=== PATIENT | female | born 1935 | race Caucasian/White ===

== ENCOUNTER 2018-09-10 05:39 | Inpatient (IN) ==
[2018-09-10] MEDS ORDERED: VANCOMYCIN INJ 1,000 MG in SODIUM CHLORIDE 0.9% 250 ML IV ONE (08:00)
[2018-09-10] MEDS ORDERED: ceFAZolin 1,000 MG in SYRINGE 1 EACH IV ONE (08:00)
[2018-09-10] MEDS ORDERED: ceFAZolin 1,000 MG VIAL ONE (08:04)
[2018-09-10] MEDS ORDERED: VANCOMYCIN 1,000 MG VIAL ONE (08:04)
[2018-09-10] MEDS ORDERED: ROPIVACAINE 0.5% 30 ML VIAL ONE (08:53)
[2018-09-10] MEDS ORDERED: BUPIVACAINE SPINAL 0.75% 2 ML AMP SPINAL ONE (08:53)
[2018-09-10] MEDS ORDERED: LACTATED RINGERS 1,000 ML IV SCH (09:30)
[2018-09-10] MEDS ORDERED: TEMAZEPAM 15 MG CAPSULE PO PRN (10:04)
[2018-09-10] MEDS ORDERED: oxyCODONE IR 5 MG TABLET PO PRN ×2 (10:05)
[2018-09-10] MEDS ORDERED: MAGNESIUM HYDROXIDE SUSP 30 ML UDCUP PO PRN (10:05)
[2018-09-10] MEDS ORDERED: MORPHINE 4 MG/1 ML VIAL IV PRN ×2 (10:05)
[2018-09-10] MEDS ORDERED: diphenhydrAMINE CAP 25 MG CAPSULE PO PRN (10:05)
[2018-09-10] MEDS ORDERED: ONDANSETRON 4 MG/2 ML VIAL IV PRN (10:05)
[2018-09-10] MEDS ORDERED: BACITRACIN OINT 0.9 GM PACK TOP ONE (10:36)
[2018-09-10] MEDS ORDERED: TRANEXAMIC ACID 1,000 MG/10 ML VIAL ONE (10:36)
[2018-09-10] MEDS ORDERED: PROPOFOL 200 MG/20 ML VIAL IV ONE (11:21)
[2018-09-10] MEDS ORDERED: fentaNYL 100 MCG/2 ML VIAL ONE (11:21)
[2018-09-10] MEDS ORDERED: MIDAZOLAM 2 MG/2 ML VIAL ONE (11:22)
[2018-09-10] MEDS ORDERED: SODIUM CHLORIDE 0.9% 100 ML IV ONE (11:22)
[2018-09-10] MEDS: KETOROLAC 15 MG/1 ML VIAL IV SCH ×3 (11:42→23:14)
[2018-09-10 12:58] LABS: Basophils # 0.1 10*3/uL (0.0-0.2); Basophils % 0.8 % (0.0-0.8); Eosinophils # 0.3 10*3/uL (0.0-0.87); Eosinophils % 2.8 % (0.00-10.9); Hematocrit 34.4 VOL% (35.7-47.0); Hemoglobin 11.1 GM/DL (12.0-16.0); Immature Granulocytes % 0.6 %; Immature Granulocytes Absolute 0.07 #; Lymphocytes # 1.7 10*3/uL (1.4-4.0); Lymphocytes % 15.2 % (21.3-54.2); Mean Corpuscular HGB Conc 32.3 GM/DL (32-36); Mean Corpuscular Hemoglobin 29 PG (27-34); Mean Platelet Volume 10.5 FL (9.6-12.0); Monocytes # 0.7 10*3/uL (0.11-0.8); Monocytes % 6.1 % (1.7-12.7); Neutrophils # 8.4 10*3/uL (1.4-7.4); Neutrophils % 74.5 % (38.7-73.9); Platelet Count 225 T/CUMM (130-400); Red Blood Count 3.78 MC/CUMM (3.8-5.5); Red Cell Distribution Width 12.3 % (9.3-17.3); White Blood Count 11.3 T/CUMM (4-12)
[2018-09-10 13:23] LABS: Calcium 8.2 MG/DL (8.5-10.1); Osmolality,Calculated 276.7 MOS/KG (273-304); Potassium 4.2 MMOL/L (3.5-5.1)
[2018-09-10] MEDS: ACETAMINOPHEN 500 MG TABLET PO SCH ×2 (15:33→20:52)
[2018-09-10] MEDS: ceFAZolin 2,000 MG in PREMIX 1 EACH IV SCH ×2 (15:41→21:16)
[2018-09-10] MEDS: DOCUSATE SODIUM 100 MG CAPSULE PO SCH (20:52)
[2018-09-11] MEDS ORDERED: TEMAZEPAM 15 MG CAPSULE PO PRN (02:00)
[2018-09-11] MEDS: ACETAMINOPHEN 500 MG TABLET PO SCH ×2 (02:43→10:28)
[2018-09-11 04:40] LABS: Basophils # 0.1 10*3/uL (0.0-0.2); Basophils % 0.7 % (0.0-0.8); Eosinophils # 0.2 10*3/uL (0.0-0.87); Eosinophils % 2.9 % (0.00-10.9); Hematocrit 30.3 VOL% (35.7-47.0); Hemoglobin 9.6 GM/DL (12.0-16.0); Immature Granulocytes % 0.4 %; Immature Granulocytes Absolute 0.03 #; Lymphocytes # 1.3 10*3/uL (1.4-4.0); Lymphocytes % 16.1 % (21.3-54.2); Mean Corpuscular HGB Conc 31.7 GM/DL (32-36); Mean Corpuscular Hemoglobin 29 PG (27-34); Mean Corpuscular Volume 91.3 FL (87-102); Monocytes # 0.7 10*3/uL (0.11-0.8); Monocytes % 8.6 % (1.7-12.7); Neutrophils # 5.7 10*3/uL (1.4-7.4); Neutrophils % 71.3 % (38.7-73.9); Platelet Count 193 T/CUMM (130-400); Red Blood Count 3.32 MC/CUMM (3.8-5.5); Red Cell Distribution Width 12.3 % (9.3-17.3)
[2018-09-11 05:12] LABS: Calcium 7.9 MG/DL (8.5-10.1); Potassium 4.2 MMOL/L (3.5-5.1)
[2018-09-11] MEDS: KETOROLAC 15 MG/1 ML VIAL IV SCH (06:00)
[2018-09-11] MEDS: FONDAPARINUX 2.5 MG/0.5 ML SYRINGE SUBCUT SCH (06:02)
[2018-09-11] MEDS: LEVOTHYROXINE 50 MCG TABLET PO SCH (06:05)
[2018-09-11] MEDS ORDERED: ACETAMINOPHEN 500 MG TABLET ONE (10:25)
[2018-09-11] MEDS: PANTOPRAZOLE 40 MG TABLET PO SCH (10:29)
[2018-09-11] MEDS: CITALOPRAM 20 MG TABLET PO SCH (10:29)
[2018-09-11] MEDS: DOCUSATE SODIUM 100 MG CAPSULE PO SCH ×2 (10:29→21:31)
[2018-09-11] MEDS: amLODIPine 5 MG TABLET PO SCH (10:30)
[2018-09-11] MEDS: PRAMIPEXOLE 0.5 MG PO SCH (16:30)
[2018-09-12 06:06] LABS: Basophils # 0.1 10*3/uL (0.0-0.2); Basophils % 0.8 % (0.0-0.8); Eosinophils # 0.4 10*3/uL (0.0-0.87); Hematocrit 28.9 VOL% (35.7-47.0); Hemoglobin 9.2 GM/DL (12.0-16.0); Immature Granulocytes % 0.5 %; Immature Granulocytes Absolute 0.04 #; Lymphocytes % 11.5 % (21.3-54.2); Mean Corpuscular HGB Conc 31.8 GM/DL (32-36); Mean Corpuscular Hemoglobin 29 PG (27-34); Mean Platelet Volume 10.9 FL (9.6-12.0); Monocytes # 0.9 10*3/uL (0.11-0.8); Neutrophils # 6.4 10*3/uL (1.4-7.4); Neutrophils % 73.2 % (38.7-73.9); Platelet Count 186 T/CUMM (130-400); Red Blood Count 3.14 MC/CUMM (3.8-5.5); Red Cell Distribution Width 12.5 % (9.3-17.3); White Blood Count 8.8 T/CUMM (4-12)
[2018-09-12] MEDS: LEVOTHYROXINE 50 MCG TABLET PO SCH (06:10)
[2018-09-12] MEDS: FONDAPARINUX 2.5 MG/0.5 ML SYRINGE SUBCUT SCH (06:10)
[2018-09-12] MEDS: CITALOPRAM 20 MG TABLET PO SCH (08:57)
[2018-09-12] MEDS: PANTOPRAZOLE 40 MG TABLET PO SCH (08:58)
[2018-09-12] MEDS: amLODIPine 5 MG TABLET PO SCH (08:58)
[2018-09-12] MEDS: PRAMIPEXOLE 0.5 MG PO SCH (10:29)
[2018-09-12] MEDS: DOCUSATE SODIUM 100 MG CAPSULE PO SCH (10:29)
[2018-09-12 12:05] VITALS: BP 131/66
== END 2018-09-12 12:35 | disposition home health service (06) | DRG 470 ==
LOC: N.OR 05:39 → N.SDSINP 05:40 → N.3E 11:54
PROVIDERS: ADMIT Orthopaedic Surgery; ATTEND Orthopaedic Surgery

== ENCOUNTER 2021-02-22 09:26 | Observation (INO) ==
[2021-02-22 11:13] LABS: Bacteria,Urine Many /HPF (Few); Bilirubin,Urine Negative (Negative); Blood, Urine Moderate mg/dL (Negative); Glucose,Urine (UA) Negative (Negative); Ketones,Urine 80 mg/dL (Negative); Mucus,Urine Occasional /LPF (Occasional); Nitrite,Urine Negative (Negative); Protein,Urine Negative; RBC,Urine 1 /HPF (0-4); Squamous Epithelial Cell,Urine Occasional /HPF (0-10); Urine Appearance CLEAR (Clear); Urine Color Yellow (Yellow); Urine Specific Gravity 1.016 (1.001-1.035); Urine Urobilinogen < 2.0 EU/DL (0.2-1.0)
[2021-02-22 11:29] LABS: Basophils # 0.1 10*3/uL (0.0-0.2); Basophils % 0.9 % (0.0-0.8); Eosinophils # 0.1 10*3/uL (0.0-0.87); Eosinophils % 0.9 % (0.00-10.9); Hematocrit 29.4 VOL% (35.7-47.0); Hemoglobin 8.8 GM/DL (12.0-16.0); Immature Granulocytes % 0.5 %; Immature Granulocytes Absolute 0.04 #; Lymphocytes # 1.3 10*3/uL (1.4-4.0); Lymphocytes % 17.3 % (21.3-54.2); Mean Corpuscular HGB Conc 29.9 GM/DL (32-36); Mean Corpuscular Volume 85.2 FL (87-102); Mean Platelet Volume 9.4 FL (9.6-12.0); Monocytes % 6.4 % (1.7-12.7); Platelet Count 366 T/CUMM (130-400); Red Blood Count 3.45 MC/CUMM (3.8-5.5); White Blood Count 7.6 T/CUMM (4-12)
[2021-02-22 12:28] LABS: Bilirubin,Total 0.5 MG/DL (0.2-1.0); Calcium 8.7 MG/DL (8.5-10.1); Osmolality,Calculated 270.8 MOS/KG (273-304); Potassium 3.9 MMOL/L (3.5-5.1); Total Protein 7.2 G/DL (6.4-8.2)
[2021-02-22] MEDS ORDERED: GLUCAGON 1 MG VIAL IM PRN (13:16)
[2021-02-22] MEDS ORDERED: DEXTROSE 50% 25 GM/50 ML VIAL IV PRN (13:16)
[2021-02-22 14:52] LABS: % Iron Saturation 5.5 % (18-50)
[2021-02-22 15:17] LABS: Folate 22.86 NG/ML (5.38-24.0); Vitamin B12 638 PG/ML (211-911)
[2021-02-22 18:54] LABS: Basophils # 0.1 10*3/uL (0.0-0.2); Basophils % 0.8 % (0.0-0.8); Eosinophils % 0.5 % (0.00-10.9); Hematocrit 30.3 VOL% (35.7-47.0); Hemoglobin 8.9 GM/DL (12.0-16.0); Immature Granulocytes % 0.8 %; Immature Granulocytes Absolute 0.06 #; Lymphocytes # 1.2 10*3/uL (1.4-4.0); Mean Corpuscular HGB Conc 29.4 GM/DL (32-36); Mean Corpuscular Volume 87.3 FL (87-102); Mean Platelet Volume 11.1 FL (9.6-12.0); Monocytes % 5.6 % (1.7-12.7); Neutrophils % 76.3 % (38.7-73.9); Platelet Count 395 T/CUMM (130-400); Red Blood Count 3.47 MC/CUMM (3.8-5.5); Red Cell Distribution Width 16.4 % (9.3-17.3); White Blood Count 7.3 T/CUMM (4-12)
[2021-02-22] MEDS ORDERED: PRAMIPEXOLE 0.25 MG TABLET PO PRN ×2 (19:59→20:02)
[2021-02-22 20:15] LABS: Sedimentation Rate-Westergren 65 MM/HR (0-30)
[2021-02-22] MEDS: SODIUM CHLORIDE 0.9% 1,000 ML IV SCH (21:29)
[2021-02-22] MEDS: TEMAZEPAM 15 MG CAPSULE PO SCH (21:29)
[2021-02-23] MEDS: SODIUM CHLORIDE 0.9% 1,000 ML IV SCH (04:40)
[2021-02-23 05:42] LABS: Hematocrit 25.1 VOL% (35.7-47.0); Hemoglobin 7.7 GM/DL (12.0-16.0)
[2021-02-23 05:56] LABS: Calcium 8.2 MG/DL (8.5-10.1); Osmolality,Calculated 269.8 MOS/KG (273-304); Potassium 3.5 MMOL/L (3.5-5.1)
[2021-02-23] MEDS ORDERED: LOPERAMIDE 2 MG CAPSULE PO PRN (08:54)
[2021-02-23] MEDS: ASPIRIN 325 MG TABLET PO SCH (09:02)
[2021-02-23] MEDS: amLODIPine 5 MG TABLET PO SCH (09:03)
[2021-02-23] MEDS: PANTOPRAZOLE 40 MG TABLET PO SCH (09:03)
[2021-02-23] MEDS: CITALOPRAM 20 MG TABLET PO SCH (09:04)
[2021-02-23] MEDS: FERROUS SULFATE 325 MG TABLET PO SCH ×2 (09:04→20:12)
[2021-02-23] MEDS ORDERED: FERRIC GLUCONATE COMPLEX 125 MG in SODIUM CHLORIDE 0.9% 100 ML IV ONE (11:00)
[2021-02-23 11:35] LABS: Hemoglobin A1 (Alkaline) 97.2 % (96.5-98.5); Hemoglobin A2 (Alkaline) 2.8 % (1.5-3.5)
[2021-02-23 11:50] LABS: Hematocrit 26.3 VOL% (35.7-47.0); Hemoglobin 8.1 GM/DL (12.0-16.0)
[2021-02-23] MEDS ORDERED: ENOXAPARIN 40 MG/0.4 ML SYRINGE SUBCUT SCH (12:00)
[2021-02-23] MEDS: TEMAZEPAM 15 MG CAPSULE PO SCH (20:14)
[2021-02-24 06:06] LABS: Basophils # 0.1 10*3/uL (0.0-0.2); Basophils % 0.8 % (0.0-0.8); Eosinophils # 0.2 10*3/uL (0.0-0.87); Eosinophils % 2.8 % (0.00-10.9); Hematocrit 25.3 VOL% (35.7-47.0); Hemoglobin 7.9 GM/DL (12.0-16.0); Immature Granulocytes % 0.6 %; Immature Granulocytes Absolute 0.04 #; Lymphocytes # 1.2 10*3/uL (1.4-4.0); Mean Corpuscular HGB Conc 31.2 GM/DL (32-36); Mean Platelet Volume 9.6 FL (9.6-12.0); Neutrophils % 69.8 % (38.7-73.9); Platelet Count 373 T/CUMM (130-400); Red Blood Count 3.05 MC/CUMM (3.8-5.5); Red Cell Distribution Width 15.9 % (9.3-17.3); White Blood Count 7.1 T/CUMM (4-12)
[2021-02-24 06:22] LABS: Calcium 8.1 MG/DL (8.5-10.1); Osmolality,Calculated 276.4 MOS/KG (273-304); Potassium 3.5 MMOL/L (3.5-5.1)
[2021-02-24 07:28] VITALS: BP 131/54
[2021-02-24] MEDS: FERROUS SULFATE 325 MG TABLET PO SCH (08:15)
[2021-02-24] MEDS: PANTOPRAZOLE 40 MG TABLET PO SCH (08:16)
[2021-02-24] MEDS: CITALOPRAM 20 MG TABLET PO SCH (08:16)
[2021-02-24] MEDS: ASPIRIN 325 MG TABLET PO SCH (08:17)
[2021-02-24] MEDS: amLODIPine 5 MG TABLET PO SCH (08:17)
[2021-02-24] MEDS ORDERED: FERRIC GLUCONATE COMPLEX 125 MG in SODIUM CHLORIDE 0.9% 100 ML IV ONE (09:00)
== END 2021-02-24 11:29 | disposition home health service (06) ==
LOC: SUATTDRO → N.EDINP 09:26 → N.ED 09:26 → SUATTDRO 13:16 → N.5E 19:30
PROVIDERS: ADMIT Internal Medicine; ATTEND Student in an Organized Health Care Education/Training Program

== ENCOUNTER 2022-06-17 08:49 | Observation (INO) ==
[2022-06-17 09:55] LABS: Basophils # 0.1 10*3/uL (0.0-0.2); Basophils % 0.6 % (0.0-0.8); Eosinophils # 0.1 10*3/uL (0.0-0.87); Eosinophils % 1.2 % (0.00-10.9); Hematocrit 39.7 VOL% (35.7-47.0); Hemoglobin 13.1 GM/DL (12.0-16.0); Immature Granulocytes % 1.2 %; Immature Granulocytes Absolute 0.12 #; Lymphocytes # 0.9 10*3/uL (1.4-4.0); Lymphocytes % 9.5 % (21.3-54.2); Mean Corpuscular Volume 92.3 FL (87-102); Mean Platelet Volume 10.2 FL (9.6-12.0); Monocytes # 0.5 10*3/uL (0.11-0.8); Monocytes % 4.8 % (1.7-12.7); Neutrophils % 82.7 % (38.7-73.9); Platelet Count 208 T/CUMM (130-400); Red Cell Distribution Width 12.3 % (9.3-17.3); White Blood Count 9.8 T/CUMM (4-12)
[2022-06-17 10:05] LABS: INR 0.9; PT Patient Result 9.8 SECS (10.1-12.1); Partial Thromboplastin Time 27.1 SECS (23.7-32.9)
[2022-06-17 10:18] LABS: Albumin 3.8 G/DL (3.4-5.0); Bilirubin,Total 0.4 MG/DL (0.20-1.00); Calcium 9.1 MG/DL (8.5-10.1); Osmolality,Calculated 275.8 MOS/KG (273-304); Potassium 4.8 MMOL/L (3.5-5.1); Total Protein 7.3 G/DL (6.4-8.2)
[2022-06-17] MEDS ORDERED: fentaNYL 100 MCG/2 ML VIAL IV STA (10:26)
[2022-06-17] MEDS ORDERED: ONDANSETRON 4 MG/2 ML VIAL IV STA (10:26)
[2022-06-17] MEDS ORDERED: ACETAMINOPHEN 325 MG TABLET PO PRN (13:01)
[2022-06-17] MEDS ORDERED: ALBUTEROL/IPRATROPIUM 3 ML NEB RESP TX PRN (13:01)
[2022-06-17] MEDS ORDERED: DOCUSATE SODIUM 100 MG CAPSULE PO PRN (13:01)
[2022-06-17] MEDS ORDERED: ONDANSETRON 4 MG/2 ML VIAL IV PRN (13:01)
[2022-06-17] MEDS ORDERED: oxyCODONE/ACETAMINOPHEN 5-325 MG TABLET PO PRN (13:01)
[2022-06-17] MEDS ORDERED: HYDROmorphone 1 MG/1 ML SYRINGE IV PRN (13:09)
[2022-06-17] MEDS ORDERED: KETOROLAC 15 MG/1 ML VIAL IV SCH (13:30)
[2022-06-17] MEDS: LACTATED RINGERS 1,000 ML IV SCH (14:00)
[2022-06-17] MEDS: KETOROLAC 30 MG/1 ML VIAL IV SCH ×2 (14:00→20:35)
[2022-06-17] MEDS: ALBUTEROL/IPRATROPIUM 3 ML NEB RESP TX SCH (19:45)
[2022-06-18] MEDS: ALBUTEROL/IPRATROPIUM 3 ML NEB RESP TX SCH ×3 (00:37→13:44)
[2022-06-18] MEDS: LACTATED RINGERS 1,000 ML IV SCH (01:50)
[2022-06-18] MEDS: KETOROLAC 30 MG/1 ML VIAL IV SCH ×3 (01:51→13:04)
[2022-06-18 05:52] LABS: Basophils # 0.1 10*3/uL (0.0-0.2); Basophils % 0.9 % (0.0-0.8); Eosinophils # 0.2 10*3/uL (0.0-0.87); Eosinophils % 2.7 % (0.00-10.9); Hematocrit 36.8 VOL% (35.7-47.0); Hemoglobin 12.1 GM/DL (12.0-16.0); Immature Granulocytes % 0.6 %; Immature Granulocytes Absolute 0.04 #; Lymphocytes # 1.5 10*3/uL (1.4-4.0); Lymphocytes % 22.9 % (21.3-54.2); Mean Corpuscular HGB Conc 32.9 GM/DL (32-36); Mean Corpuscular Volume 94.6 FL (87-102); Mean Platelet Volume 10.8 FL (9.6-12.0); Monocytes # 0.5 10*3/uL (0.11-0.8); Monocytes % 8.2 % (1.7-12.7); Neutrophils % 64.7 % (38.7-73.9); Platelet Count 201 T/CUMM (130-400); Red Blood Count 3.89 MC/CUMM (3.8-5.5); Red Cell Distribution Width 12.5 % (9.3-17.3); White Blood Count 6.6 T/CUMM (4-12)
[2022-06-18 06:21] LABS: Albumin 3.2 G/DL (3.4-5.0); Bilirubin,Total 0.6 MG/DL (0.20-1.00); Calcium 8.5 MG/DL (8.5-10.1); Osmolality,Calculated 280.4 MOS/KG (273-304); Potassium 4.3 MMOL/L (3.5-5.1); Total Protein 6.8 G/DL (6.4-8.2)
[2022-06-18] MEDS ORDERED: ENOXAPARIN 30 MG/0.3 ML SYRINGE SUBCUT SCH (08:00)
[2022-06-18] MEDS ORDERED: ASPIRIN CHEW 81 MG TABLET PO SCH (09:00)
[2022-06-18] MEDS ORDERED: CITALOPRAM 20 MG TABLET PO SCH (09:00)
[2022-06-18] MEDS ORDERED: PANTOPRAZOLE 40 MG TABLET PO SCH (09:00)
[2022-06-18] MEDS ORDERED: amLODIPine 5 MG TABLET PO SCH (09:00)
[2022-06-18 12:00] VITALS: BP 139/49
[2022-06-18] MEDS ORDERED: PRAMIPEXOLE 1 MG TABLET PO SCH (21:39)
== END 2022-06-18 15:00 | disposition home health service (06) ==
LOC: N.EDINP 08:49 → N.ED 08:49 → N.3E 14:39
PROVIDERS: ADMIT Surgery; ATTEND Surgery